=== PATIENT | female | born 2000 | race American Indian/Alaskan Native ===

== ENCOUNTER 2021-10-22 21:52 | Emergency (ER) | payer MEDICAID ==
[2021-10-22] MEDS ORDERED: LORazepam 2 MG/ML SDV IVPUSH STA (22:02)
[2021-10-22] MEDS ORDERED: Sodium Chloride 0.9% 10 ML Syringe FLUSH PRN (22:03)
[2021-10-22] MEDS ORDERED: diphenhydrAMINE 50 MG/ML SDV IVPUSH ONE (22:03)
== END 2021-10-22 23:48 | disposition home or self-care (01) ==
LOC: JP.ED 21:52
DX: L50.1 Idiopathic urticaria (principal); F41.9 Anxiety disorder, unspecified; Z88.0 Allergy status to penicillin
CPT/HCPCS: 96374; 96375; 99283; J1200; J2060; J3490